=== PATIENT | female | born 1950 | race Two or more races ===

== ENCOUNTER → 2020-08-05 08:00 | Outpatient (CLI) | payer OTHER ==
[~2020-08-05 08:00] MED LIST: ASPIR 8181 MG PO; AVALIDE 300-121 EACH PO; DOXAZOSIN MESYLA4 MG PO; FORTAMET500 MG PO; GABAPENTIN PO; IRBESARTAN-HCT1 EAC1 PO; SIMVASTATIN PO; VERAPAMIL PO
== END | disposition home or self-care (01) ==
LOC: ADM 07:30 → LAB 08:00 → EDSTATUS 08-12 07:30 → CIR.AMB 08-12 07:30
PROVIDERS: ATTEND Specialist
DX: D21.11 Benign neoplasm of connective and other soft tissue of right upper limb, including shoulder (principal); Z20.828 Contact with and (suspected) exposure to other viral communicable diseases; Z11.59 Encounter for screening for other viral diseases; I10 Essential (primary) hypertension